=== PATIENT | female | born 1960 | race Caucasian/White ===

== ENCOUNTER 2017-07-23 10:21 | Inpatient (IN) | payer OTHER ==
[~2017-07-23] VITALS: Ht 177.8 cm; Wt 73.5 kg
[2017-07-23] MEDS ORDERED: SODIUM CHLORIDE 0.9% 1,000 ML IV ONE (10:32)
[2017-07-23] MEDS ORDERED: WARF5TAB7 PO ×2 (10:46→10:47)
[2017-07-23] MEDS ORDERED: DOFE500C PO (10:48)
[2017-07-23] MEDS ORDERED: MAGN400T26 PO (10:49)
[2017-07-23] MEDS ORDERED: LORazepam 2 MG/ML, 1ML IVPush ONE (11:00)
[2017-07-23] MEDS ORDERED: SODIUM CHLORIDE FLUSH 10ML SYR IVF ONE (11:00)
[2017-07-23] MEDS ORDERED: SODIUM CHLORIDE 0.9% 1,000ML IVBOLUS ONE (11:00)
[2017-07-23] MEDS ORDERED: ONDANSETRON 2MG/ML, 2ML IVPush ONE (11:00)
[2017-07-23 11:01] LABS: BASOPHILS # (AUTO) 0.01 x10^3/uL (0-0.1); BASOPHILS % (AUTO) 0 % (0-1); EOSINOPHILS # (AUTO) 0.01 x10^3/uL (0-0.4); EOSINOPHILS % (AUTO) 0 % (1-7); LYMPHOCYTES # (AUTO) 0.83 x10^3/uL (1-3.4); LYMPHOCYTES % (AUTO) 19 % (22-44); MD NO; MEAN CORPUSCULAR HEMOGLOBIN 31.4 pg (27.0-34.8); MEAN CORPUSCULAR HGB CONC 34.4 g/dL (32.4-35.8); MEAN CORPUSCULAR VOLUME 91.3 fL (80-100); MEAN PLATELET VOLUME 7.8 fL (7.4-10.4); MONOCYTES # (AUTO) 0.45 x10^3/uL (0.2-0.8); MONOCYTES % (AUTO) 11 % (2-9); NEUTROPHILS % (AUTO) 70 % (42-75); PLATELET COUNT 168 x10^3/uL (130-400); RED BLOOD COUNT 4.78 x10^6/uL (3.82-5.3); RED CELL DISTRIBUTION WIDTH 12.7 % (9.6-15.2)
[2017-07-23 11:10] LABS: INTERNATIONAL NORMALIZED RATIO 3.86 (0.93-1.1); PROTHROMBIN TIME 38.7 Seconds (9.6-11.5)
[2017-07-23 11:13] LABS: ALANINE AMINOTRANSFERASE 23 U/L (12-78); ALBUMIN 3.6 g/dL (3.4-5.0); ANION GAP 7 mmol/L (5-15); CHLORIDE 108 mmol/L (98-107); CREATININE 0.82 mg/dL (0.55-1.02)
[2017-07-23 11:17] LABS: ALKALINE PHOSPHATASE 36 U/L (45-117); BILIRUBIN,TOTAL 0.4 mg/dL (0.2-1.0)
[2017-07-23] MEDS ORDERED: SODIUM CHLORIDE FLUSH 10ML SYR IVF PRN (13:00)
[2017-07-23] MEDS ORDERED: DOCUSATE 100 MG CAPSULE PO PRN (14:00)
[2017-07-23] MEDS ORDERED: BISACODYL 10 MG SUPP PR PRN (14:00)
[2017-07-23] MEDS ORDERED: POLYETHYLENE GLYCOL 17 GM PACKET PO PRN (14:00)
[2017-07-23 14:06] VITALS: BP 146/85
[2017-07-23 14:18] LABS: THYROID STIMULATING HORMONE 1.85 mIU/L (0.358-3.740)
[2017-07-23] MEDS ORDERED: MAGNESIUM SULFATE PMX 2GM/50ML 50 ML IV ONE (14:30)
[2017-07-23] MEDS ORDERED: TIKOSYN PO ONE (14:30)
[2017-07-23] MEDS: NS + 20MEQ KCL 1,000 ML IV SCH (14:50)
[2017-07-23 14:58] VITALS: BP 146/85
[2017-07-23] MEDS: ACETAMINOPHEN 325 MG TABLET PO PRN (17:14)
[2017-07-23 17:30] LABS: TROPONIN I 0.018 ng/mL (0.000-0.045)
[2017-07-23 17:40] LABS: RAPID INFLUENZA A POSITIVE (Negative)
[2017-07-23 17:42] LABS: RAPID INFLUENZA B Negative (Negative)
[2017-07-23] MEDS ORDERED: WARFARIN 5 MG TABLET PO-COUM ONE (18:00)
[2017-07-23 20:18] VITALS: BP 114/80
[2017-07-23] MEDS: DOFETILIDE 500 MG HOMEMEDPO SCH (21:00)
[2017-07-23] MEDS: OSELTAMIVIR 75 MG CAPSULE PO SCH (21:00)
[2017-07-23] MEDS ORDERED: DOFETILIDE 500 MCG PO SCH (21:00)
[2017-07-24 00:06] LABS: TROPONIN I < 0.015 ng/mL (0.000-0.045)
[2017-07-24] MEDS: NS + 20MEQ KCL 1,000 ML IV SCH (00:56)
[2017-07-24 00:59] VITALS: BP 127/78
[2017-07-24 06:05] LABS: BASOPHILS # (AUTO) 0.02 x10^3/uL (0-0.1); BASOPHILS % (AUTO) 1 % (0-1); EOSINOPHILS # (AUTO) 0.03 x10^3/uL (0-0.4); EOSINOPHILS % (AUTO) 1 % (1-7); LYMPHOCYTES # (AUTO) 1.74 x10^3/uL (1-3.4); LYMPHOCYTES % (AUTO) 50 % (22-44); MD NO; MEAN CORPUSCULAR HEMOGLOBIN 31.2 pg (27.0-34.8); MEAN CORPUSCULAR HGB CONC 34.4 g/dL (32.4-35.8); MEAN CORPUSCULAR VOLUME 90.6 fL (80-100); MEAN PLATELET VOLUME 7.8 fL (7.4-10.4); MONOCYTES # (AUTO) 0.51 x10^3/uL (0.2-0.8); MONOCYTES % (AUTO) 15 % (2-9); NEUTROPHILS # (AUTO) 1.16 x10^3/uL (1.8-6.8); NEUTROPHILS % (AUTO) 34 % (42-75); PLATELET COUNT 144 x10^3/uL (130-400); RED BLOOD COUNT 4.22 x10^6/uL (3.82-5.3); RED CELL DISTRIBUTION WIDTH 12.4 % (9.6-15.2)
[2017-07-24 06:09] LABS: INTERNATIONAL NORMALIZED RATIO 4.24 (0.93-1.1); PROTHROMBIN TIME 42.9 Seconds (9.6-11.5)
[2017-07-24 06:17] LABS: CHLORIDE 114 mmol/L (98-107)
[2017-07-24 06:29] LABS: ANION GAP 6 mmol/L (5-15); CALCIUM 7.9 mg/dL (8.5-10.1); CREATININE 0.55 mg/dL (0.55-1.02)
[2017-07-24 07:05] VITALS: BP 103/70
[2017-07-24] MEDS: DOFETILIDE 500 MG HOMEMEDPO SCH ×2 (09:00→20:45)
[2017-07-24] MEDS: OSELTAMIVIR 75 MG CAPSULE PO SCH ×2 (09:00→20:45)
[2017-07-24] MEDS: MAGNESIUM OXIDE 400 MG TABLET PO SCH (09:18)
[2017-07-24 15:06] VITALS: BP 111/76
[2017-07-24] MEDS ORDERED: CALCIUM CARBONATE 500 MG TAB.CHEW PO PRN (16:00)
[2017-07-24] MEDS ORDERED: HOLD MEDICATION WARFARIN MC ONE (18:00)
[2017-07-24 19:23] VITALS: BP 108/74
[2017-07-25 00:34] VITALS: BP 113/77
[2017-07-25 05:15] LABS: INTERNATIONAL NORMALIZED RATIO 2.43 (0.93-1.1); PROTHROMBIN TIME 24.8 Seconds (9.6-11.5)
[2017-07-25 08:39] VITALS: BP 110/77
[2017-07-25] MEDS: DOFETILIDE 500 MG HOMEMEDPO SCH (08:43)
[2017-07-25] MEDS: OSELTAMIVIR 75 MG CAPSULE PO SCH (08:43)
[2017-07-25] MEDS: MAGNESIUM OXIDE 400 MG TABLET PO SCH (08:44)
[2017-07-25 13:43] VITALS: BP 117/85
[2017-07-25] MEDS ORDERED: PROPOFOL 10 MG/ML, 20ML ONE (15:48)
[2017-07-25] MEDS: ACETAMINOPHEN 325 MG TABLET PO PRN (16:33)
[2017-07-25] MEDS ORDERED: WARFARIN 5 MG TABLET PO-COUM ONE (18:00)
== END 2017-07-25 18:32 | disposition home or self-care (01) | DRG 309 ==
LOC: ED 11:41 → EDIP 12:58 → 5SO 14:11
PROVIDERS: ADMIT Family Medicine; ATTEND Family Medicine
PROC: 5A2204Z Restoration of Cardiac Rhythm, Single (ICD-10-PCS; principal; 2017-07-25)
DX: I48.92 Unspecified atrial flutter (principal); D68.69 Other thrombophilia; I48.91 Unspecified atrial fibrillation; J10.1 Influenza due to other identified influenza virus with other respiratory manifestations; Z79.01 Long term (current) use of anticoagulants; Z82.49 Family history of ischemic heart disease and other diseases of the circulatory system; Z87.891 Personal history of nicotine dependence
CPT/HCPCS: 36415; 80048; 80053; 83735; 83880; 84443; 84484; 85025; 85610; 85730; 87400; 92960; 93005; 93306; 96360; 96361; J2704; J3480; J3475; J7030

== ENCOUNTER 2019-07-15 15:12 | Outpatient (CLI) | payer OTHER ==
[~2019-07-15 15:12] MED LIST: DOFE500C PO; MAGN400T26 PO; WARF-36 PO
== END 2019-07-15 23:59 | disposition home or self-care (01) ==
LOC: CFH 15:12 → EDSTATUS 15:30 → CFH 23:59
PROVIDERS: ATTEND Nurse Practitioner Family
DX: Z12.31 Encounter for screening mammogram for malignant neoplasm of breast (principal)
CPT/HCPCS: 77063; 77067

== ENCOUNTER 2020-10-08 10:55 | Day surgery (SDC) | payer OTHER ==
[~2020-10-08] VITALS: Ht 177.8 cm; Wt 70.0 kg
[~2020-10-08 10:55] MED LIST changes: +APIX5TAB PO; +PROPOFOL 10 MG/ML, 20ML ONE
[2020-10-08] MEDS ORDERED: SODIUM CHLORIDE 0.9% 500 ML IV PRN (11:30)
[2020-10-08 11:31] VITALS: BP 97/76
[2020-10-08 12:14] LABS: ANION GAP 4 mmol/L (5-15); CALCIUM 9.2 mg/dL (8.5-10.1); CHLORIDE 112 mmol/L (98-107); CREATININE 0.86 mg/dL (0.55-1.02)
== END 2020-10-08 14:30 | disposition home or self-care (01) ==
LOC: CACL 10:55
PROVIDERS: ATTEND Internal Medicine Cardiovascular Disease
DX: I48.0 Paroxysmal atrial fibrillation (principal); I34.0 Nonrheumatic mitral (valve) insufficiency; Z20.822 Contact with and (suspected) exposure to COVID-19; Z79.01 Long term (current) use of anticoagulants; Z79.899 Other long term (current) drug therapy; Z91.013 Allergy to seafood; Z98.890 Other specified postprocedural states
CPT/HCPCS: 36415; 80048; 87635; 92960; 93005; 93312; 93321; 93325; J2704